=== PATIENT | female | born 1975 | race Caucasian/White ===

== ENCOUNTER 2017-01-02 17:08 | Emergency (ER) | payer SELFPAY ==
[2017-01-02 17:12] VITALS: O2SAT 96
--- NOTE | 2017-01-02 17:43 | UCPHY ---
H & P Time Seen by Provider: 01/02/17 17:14 Patient Type: New HPI/ROS: This patient complains of burning mild rash to the left sacral region over the past 4 days. She reports slight worsening. For Gerri notice 1 red bump and now she notes a cluster in the area. She describes the severity as mild to moderate. She notes no exacerbating or alleviating factors. She has never had a rash like this before. She wonders if she may have had an insect bite to the area. ROS: No fevers or chills. No other constitutional symptoms. She does report increase work stress over the past week. No skin rash elsewhere. 5 point ROS is otherwise negative. Past Medical/Surgical History: Chickenpox as a child Mild asthma Smoking Status: Never smoked Physical Exam: Physical Exam Vital signs are normal. General: No acute distress HEENT: Atraumatic. Eyes: Pupils equal and react to light. Extraocular motions are intact. Lungs: No respiratory distress. Cardiac: Brisk capillary refill is intact throughout. Pulses are 2+ and symmetric in the affected extremity. Skin: Patient has left-sided sacral region erythematous papules nephew vesicles in a dermatomal distribution without surrounding erythema. No fluctuant lesions. The total size the affected areas approximately 4 x 2 cm. No petechia or purpura Neuro: Alert and oriented x3 with no sensorimotor deficits. Initial differential diagnosis: Herpes zoster, contact dermatitis, herpes Constitutional: Initial Vital Signs Temperature (C) 36.6 C 01/02/17 17:11 Heart Rate 85 01/02/17 17:11 Respiratory Rate 18 01/02/17 17:11 Blood Pressure 134/89 H 01/02/17 17:11 O2 Sat (%) 96 01/02/17 17:11 O2 Delivery Mode Room Air Allergies/Adverse Reactions: No Known Allergies Allergy (Verified 09/18/13 18:51) Home Medications: Medication Instructions Recorded NO HOME MEDICATIONS 01/03/11 Albuterol Hfa Anes Only [Proair 2 puffs IH Q4 PRN #1 mdi 09/18/13 Hfa Icu (*)] Fluticasone Hfa 220 Mcg [Flovent 2 puffs IH DAILY #1 mdi 09/18/13 220 MCG Hfa MDI (*)] Valacyclovir HCl [Valtrex] 1,000 mg PO TID #21 tab 01/02/17 MDM/Departure - [facility] ED Course/Re-evaluation: Findings are most consistent with shingles. I counseled the patient regarding this. - Depart Disposition: Home, Routine, Self-Care Clinical Impression: Shingles Qualifiers: Herpes zoster complications: without complications Qualified Code(s): B02.9 - Zoster without complications Condition: Good Instructions: Shingles (ED) Additional Instructions: Diagnosis: Sacral shingles Plan: Valtrex antiviral as prescribed Ibuprofen and Tylenol for discomfort as needed Consider sitting on inflatable donut until symptoms resolve Get plenty of rest Return for any significant worsening despite the treatment plan Prescriptions: Valacyclovir HCl [Valtrex] 1,000 mg PO TID #21 tab Referrals: NONE *PRIMARY CARE P,. [Primary Care Provider] - As per Instructions - PQRS PQRS Measurement: NA
[2017-01-02 18:01] VITALS: BP 128/81; PULSE 81; RESP 16; TEMP 97.9
== END 2017-01-02 18:00 | disposition home or self-care (01) ==
LOC: CED 17:08
DX: B02.9 Zoster without complications (principal); J45.909 Unspecified asthma, uncomplicated
CPT/HCPCS: 99203-PO; G0463-PO